=== PATIENT | male | born 1970 | race Caucasian/White ===

== ENCOUNTER 2016-12-07 07:25 | Emergency (ER) | payer OTHER ==
[~2016-12-07] VITALS: Ht 167.6 cm; Wt 72.7 kg
[2016-12-07 07:28] VITALS: BP 143/96; PULSE 77; RESP 16; O2SAT 100
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
[2016-12-07] MEDS ORDERED: HYDROcodone-APAP 10-325 mg PO ONE (09:20)
--- NOTE | 2016-12-07 09:35 | DRSVH ---
PROCEDURE: X-RAY RIGHT TIBIA/FIBULA, TWO VIEWS ([id number]) INDICATIONS: fall, RIGHT LOWER LEG pain TECHNIQUE: 2 views of the tibia and fibula were acquired. COMPARISON: [facility], CR, XR KNEE 1 OR 2VW RT, 12/07/2016, 8:30. FINDINGS: Bones: There is a nondisplaced fracture in the lateral tibial plateau. No suspicious bony lesions. Soft tissues: No suspicious soft tissue calcifications or masses. IMPRESSION: Nondisplaced lateral tibial plateau fracture. Please see separate right knee x-ray report . Dictated by: Tanna Yoder M.D. on 12/07/2016 at 9:32 Approved by: Tanna Yoder M.D. on 12/07/2016 at 9:33
--- NOTE | 2016-12-07 09:37 | DRSVH ---
PROCEDURE: X-RAY RIGHT KNEE, ONE OR TWO VIEWS ([id number]) INDICATIONS: RIGHT KNEE PAIN, FOLLOWING FALL TECHNIQUE: 2 views of the knee were acquired. COMPARISON: [facility], CR, XR TIBIA FIBULA 2VW RT, 12/07/2016, 8:08. FINDINGS: Bones: There is a nondisplaced lateral tibial plateau fracture with minimal central depression. No s uspicious bony lesions. Soft tissues: Large joint effusion with hemarthrosis. No suspicious soft tissue calcifications. IMPRESSION: Nondisplaced lateral tibia plateau fracture with hemarthrosis. Dictated by: Tanna Yoder M.D. on 12/07/2016 at 9:34 Approved by: Tanna Yoder M.D. on 12/07/2016 at 9:36
--- NOTE | 2016-12-07 09:40 | DRSVH ---
PROCEDURE: X-RAY RIGHT FEMUR, TWO VIEWS ([id number]) INDICATIONS: fall, Right thigh pain TECHNIQUE: 2 views of the femur were acquired. COMPARISON: [facility], CR, XR KNEE 1 OR 2VW RT, 12/07/2016, 8:30. [facility], CR, XR TIBIA FIBULA 2VW RT, 12/07/2016, 8:08. FINDINGS: Bones: No fractures or dislocations in right femur. Lateral tibial plateau fracture and hemarthrosis are better seen on knee radiographs. Soft tissues: No suspicious soft tissue calcifications or masses. IMPRESSION: No fracture or dislocation. Dictated by: Tanna Yoder M.D. on 12/07/2016 at 9:36 Approved by: Tanna Yoder M.D. on 12/07/2016 at 9:38
[2016-12-07] MEDS ORDERED: oxyCODONE-Acetamin 10-325 mg Tablet PO ONE ×2 (10:25→15:05)
--- NOTE | 2016-12-07 10:28 | DRSVH ---
PROCEDURE: CT KNEE RIGHT W/O CONTRAST ([id number]) INDICATIONS: tibial plateau fx TECHNIQUE: Noncontrast 1-1.5 mm axial sections acquired from the mid-patella to the proximal tibia, with coronal and sagittal reformats. COMPARISON: [facility], CR, XR KNEE 1 OR 2VW RT, 12/07/2016, 8:30. FINDINGS: Image quality: Excellent. Bones: There is a mildly displaced comminuted fracture of the lateral tibial plateau, extending from its anterior aspect to its posterior aspect, as well as to the lateral tibial spine. There is no sign ificant depression of the lateral tibial plateau. Within the anterior weightbearing aspect of the lat eral femoral condyle, there is a 15 mm transverse by 15 mm anteroposterior by 7 mm craniocaudal proba ble osteochondral lesion. Soft tissues: Moderate lipohemarthrosis is present. Small amount of gas within the suprapatellar rece ss. IMPRESSION: 1. Comminuted lateral tibial plateau fracture, as seen by plain film. 2. Probable unstable osteochondral defect involving the lateral tibial plateau; confirmation with MRI is recommended. 3. Lipohemarthrosis. 4. Small amount of gas within the suprapatellar recess, suggestive of an open fracture. Dictated by: Andriy Sanchez M.D. on 12/07/2016 at 10:11 Approved by: Andriy Sanchez M.D. on 12/07/2016 at 10:27
[2016-12-07 10:54] VITALS: BP 120/68; RESP 16; O2SAT 94
--- NOTE | 2016-12-07 13:22 | DRSVH ---
PROCEDURE: MRI KNEE RIGHT WITHOUT CONTRAST ([id number]) INDICATIONS: 46 year-old male with lateral tibial plateau fracture. TECHNIQUE: Noncontrast sagittal PD fast spin echo and T2 fast spin echo with fat saturation, sagittal 3-D FLASH with fat saturation; coronal T1 spin echo and PD fast spin echo with fat saturation, and axial PD fas t spin echo with fat saturation through the knee. COMPARISON: [facility], CT, CT KNEE RT WO CON, 12/07/2016, 9:53. [facility], CR, XR KNEE 1 OR 2VW RT, 12/07/2016, 8:30. FINDINGS: Image quality: Excellent. Menisci: The medial and lateral menisci demonstrate normal morphology and internal signal. The meni scal root ligaments appear intact. Cruciate ligaments: The anterior and posterior cruciate ligaments appear intact. Medial structures: The medial collateral ligament appears intact. The posterior oblique ligament, s emimembranosus tendon insertions, oblique popliteal ligament, and meniscocapsular junction appear int act. Visualized portions of the pes anserinus tendons appear normal. No abnormal bursal fluid. Lateral structures: The lateral collateral ligament, long and short heads of the biceps femoris tend on appear intact. The popliteus tendon appears normal; the popliteofibular ligament appears intact. The posterosuperior and anteroinferior popliteomeniscal fascicles appear intact. The arcuate and fa bellofibular ligaments appear intact, on either side of the lateral inferior geniculate artery. Ilio tibial band appears normal. Anterior structures: The quadriceps and patellar tendons appear intact. Patellar alignment is chioma l. No femoral trochlear dysplasia or ventral trochlear prominence. There is dependent fluid in the i nfrapatellar fat pad. Bones and cartilage: A nondepressed vertical fracture involves the lateral tibial plateau, with prima ry fracture line in the sagittal plane. On coronal image 13, there is anterior subchondral impaction of the lateral tibial plateau, along with localized extension of fracture through the articular carti toño. On sagittal image 5, an additional nondisplaced subchondral curvilinear fracture involves the m idportion of the lateral femoral condyle. The lateral femoral condylar cartilage surface still appear s intact. The medial femorotibial and patellofemoral compartment cartilage demonstrates normal thickn ess and signal. Joint space: There is large lipohemarthrosis, with dependent fat-fluid level. No Ayers's cyst. Nor mal appearing synovial plicae are incidentally noted. IMPRESSION: 1. Nondepressed vertical fracture of the lateral tibial plateau again noted, with anterior subchondra l chondral and cortical impaction, as well as extension of fracture through the anterior articular ca rtilage. 2. Additional nondisplaced subchondral fracture of the midportion of the lateral femoral condyle. 3. Large associated lipohemarthrosis. Dictated by: Leonid Minaya M.D. on 12/07/2016 at 13:10 Approved by: Leonid Minaya M.D. on 12/07/2016 at 13:21
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
[2016-12-07] MEDS ORDERED: OXYC-466 PO (14:41)
[2016-12-07 15:47] VITALS: BP 109/76; PULSE 82; O2SAT 96
[2016-12-10] MEDS ORDERED: FLUO10TA PO (18:10)
[2016-12-10] MEDS ORDERED: MELA3TAB35 PO (18:10)
== END 2016-12-07 15:43 | disposition home or self-care (01) ==
LOC: EDBD 07:25 → SED 07:25
DX: S82.121A Displaced fracture of lateral condyle of right tibia, initial encounter for closed fracture (principal); S72.421A Displaced fracture of lateral condyle of right femur, initial encounter for closed fracture; S70.01XA Contusion of right hip, initial encounter; W17.89XA Other fall from one level to another, initial encounter; Y92.481 Parking lot as the place of occurrence of the external cause; Y93.9 Activity, unspecified; Y99.8 Other external cause status; Z91.041 Radiographic dye allergy status
CPT/HCPCS: 73551; 73560; 73564; 73590; 73700; 73721; 96372; 99285; J1885

== ENCOUNTER 2016-12-11 13:09 | Inpatient (IN) | payer OTHER ==
[~2016-12-11] VITALS: Ht 167.6 cm; Wt 77.6 kg
[2016-12-11] VITALS (8 sets, daily range): BP systolic 109–125; BP diastolic 59–82; PULSE 75–86; RESP 8–18; O2SAT 95–97
[~2016-12-11 13:09] MED LIST: CeFAZolin Inj 3 GM in IV Premix IV ONE; FLUO10TA PO; Lactated Ringer's 1,000 ML IV ONE; MELA3TAB35 PO; OXYC-466 PO
[2016-12-11] MEDS ORDERED: fentaNYL-PF 50 mCg/mL 2 mL Inj ONE (13:10)
[2016-12-11] MEDS ORDERED: Ondansetron 2 mg/mL 2 mL Inj ONE (13:10)
[2016-12-11] MEDS ORDERED: HYDROmorphone 2 mg/mL Inj ONE (13:10)
[2016-12-11] MEDS ORDERED: Lidocaine PF 1% 30 mL Inj ONE (13:10)
[2016-12-11] MEDS ORDERED: Propofol 10,000 mCg/mL 20 mL Inj ONE (13:10)
[2016-12-11] MEDS ORDERED: CeFAZolin Inj 3 Gm/ D5W 50 mL Bag IV ONE (13:50)
[2016-12-11] MEDS ORDERED: hydrALAZINE 20 mg/mL Inj IVPUSH PRN (14:50)
[2016-12-11] MEDS ORDERED: HYDROmorphone 1 mg/mL Inj IVPUSH PRN (14:50)
[2016-12-11] MEDS ORDERED: EPHEDrine Sulfate 50 mg/mL Inj IVPUSH PRN (14:50)
[2016-12-11] MEDS ORDERED: Labetalol 5 mg/mL 4 mL Inj IV PRN (14:50)
[2016-12-11] MEDS ORDERED: Lactated Ringer's 500 ML IV PRN (14:50)
[2016-12-11] MEDS ORDERED: Ondansetron 2 mg/mL 2 mL Inj IVPUSH PRN ×2 (14:50→17:45)
[2016-12-11] MEDS ORDERED: Atropine 0.4 mg/mL Inj IVPUSH PRN (14:50)
[2016-12-11] MEDS ORDERED: Lactated Ringer's 1,000 ML IV SCH (14:50)
[2016-12-11] MEDS ORDERED: Dexamethasone 4 mg/mL Inj IVPUSH PRN (14:50)
[2016-12-11] MEDS ORDERED: Phenylephrine 10,000 mCg/mL Inj IVPUSH PRN (14:50)
[2016-12-11] MEDS ORDERED: MetoCLOpramide 5 mg/mL 2 mL Inj IVPUSH PRN (14:50)
[2016-12-11] MEDS ORDERED: fentaNYL-PF 50 mCg/mL 2 mL Inj IVPUSH PRN (14:50)
--- NOTE | 2016-12-11 14:50 | PCM.HPANE ---
Patient Data Date of Service: Dec 11, 2016 Surgeon Admitting Provider: Attending Provider:Jose R Guerrero DO Primary Care Physician:Meche Other Provider:Javi Darnell Anesthesia Reason for Visit Right Tibial Plateau Fracture Ht/WT & BMI Height (Feet): 5 Height (Inches): 6 Weight (Kilograms): 77.6 Body Mass Index 27.00 Allergies Coded Allergies: Contrast Media (Verified Allergy, Severe, anapylaxis, 12/07/16) Past Anesthesia History Anesthesia History: Denies:: Abnormal Airway, Anesthesia Reactions, Difficult Intubation, Fam Anesthesia Reaction, Fam Malignant Hypertherm, Malignant Hyperthermia Diabetes History Hx Diabetes?: No MRSA MRSA: No Medications Home Meds Incl Beta Ruchi: No Active Scripts oxyCODONE-Acetaminophen 10-325 mg 1 Each Tablet1 Tablet PO Q4H PRN For Pain #20 TABLET Ref 0 Prov:Luke Martinez DO 12/07/16 Reported Medications Fluoxetine 10 Mg [id number] Mg PO DAILY Ref 0 12/10/16 Discontinued Reported Medications Melatonin 3 Mg Tablet3 Mg PO HS PRN PRN Insomnia 12/10/16 History History of ENT Problems?: No HEENT History: Denies:: Abnormal Airway Cataracts Difficult Intubation Dysphagia Glaucoma Hearing Problem Sinus Problem TMJ Hx of Heart Problems?: No Cardiovascular History: Denies:: AICD Cardiac Surgery Chest Pain Congestive Heart Failure Edema Heart Murmur Hypertension Irregular Heartbeat Pacemaker Hx of Respiratory Problem?: No Respiratory History: Denies:: Asthma COPD Cough Dyspnea Emphysema Oxygen Administration Pneumonia Tuberculosis Use of C-PAP Machine Use of Inhalers / NEBS Hx Neurologic Problems?: No Neurological History: Denies:: Alzheimer's Disease CVA Dementia Dizziness Headaches Multiple Sclerosis Parkinson's Disease Seizures TIA Hx of GI Problems?: No Gastrointestinal History: Denies:: Cirrhosis Diverticulitis Gall Bladder Disease Gastroesphageal Reflux Gastrointestinal Bleeding Heartburn Hepatitis Hiatal Hernia Liver Disease Rectal Bleeding Hx of Problems?: Yes Genitourinary History: Positive for:: Kidney Stones Other Pertinent History: HX OF KIDNEY SURGERY A CHILD Male Hx: Denies:: Prostate Problems Scrotal Mass Testicular Surgery Skin History: Denies:: History Skin Disorders? Hx Musculoskeletal Problems?: Yes (tibeal plateau fx) Musculoskeletal History: Denies:: Back Injury Degenerative Joint Joint Replacement Hx of Psycho/Social Problems?: Yes Psycho Social History: Positive for:: Anxiety Hx Depression Denies:: Bipolar Disorder Suicide Attempt Hx Surgeries?: Yes (KIDNEY SURGER CHILD) Other History: Positive for:: Hospitalization ([facility] 2006) Denies:: Cancer Endocrine Disease Thyroid Disease History Blood Transfusions: Positive for:: Accept Blood Products? Denies:: Blood Transfusions Hx Diabetes: No Hx Alcohol Use: YesAlcoholic Drinks Per Day: OCCASIONAL BEER 3/WEEKHx Substance Use: NoHave You Smoked inLast 12 mo: No Stop/Bang Treated for Sleep Apnea?: No Do You Have a CPAP Machine?: No S-Snoring: Do You Snore Loudly: No T-Tired: feel tired, fatigued: No O-Obsered: Observed not breath: No P-Blood Pressure: treated: No B- Body Mass Index > 35 kg/m2: No A- Age over 50: No N- Neck Large Circumference: No G- Gender Male: Yes NEFTALI Total Score: 1 NEFTALI Risk Assessment: Low Risk, <3 Yes Risk Assessment Category Category 1A: Patient has history of documented sleep apnea, and HAS NOT received any narcotic, sedative or anesthesia administration during this stay. Category 1B: Patient has history of documented sleep apnea, and HAS received any narcotic , sedative or anesthesia administration during this stay Category 2: Patient has SUSPECTED Obstructive Sleep Apnea, and HAS received any narcotic , sedative or anesthesia administration during this stay. Category 3: Patient has SUSPECTED Obstructive Sleep Apnea and HAS NOT received narcotic, sedative or anesthesia administration during this stay. Category 4: Outpatient in Procedural Areas with known sleep apnea or who screen positive for High Risk via the STOP/BANG questionnaire. Exam Exam Vital Signs Vital Signs Date Time Temp Pulse Resp B/P Pulse Ox O2 Delivery O2 Flow Rate FiO2 12/11/16 13:55 36.2 82 18 122/77 96 General Appearance: Alert, Oriented X3, Cooperative HEENT/AIRWAY: MP 2, Neck Movement, Mouth Opening (Wide) Lungs: Clear to Auscultation, Clear to Percussion, Normal Air Movement Heart: Regular Rate/Rhythm, Normal S1, Normal S2 Meds/Labs/Diagnostics Admission Meds Current Medications Lactated Ringer's (Lr) 1,000 ml @ 120 mls/hr Q8H20M ONCE IV Last administered on 12/11/16t 13:12; Start 12/11/16 at 08:49; Stop 12/11/16 at 17:08 Plan Impression Patient chart reviewed, patient interviewed and anesthestic plan with risks, benefits, and alternatives discussed, and informed consent obtained. NPO Status: MIDNIGHT ASA Physical Status: ASA2 Mod Systemic Disease Anesthetic Plan: GA Bene/Risks/Altern/Consents: Yes HP Complete Prior to Induction: Yes Elvis Rashid MD Dec 11, 2016 14:50
[2016-12-11 14:54] LABS: BASOPHILS % (AUTO) 0.8 % (0-3); EOSINOPHILS % (AUTO) 2.3 % (0-5); MONOCYTES % (AUTO) 11.1 % (4-12); Mean Corpuscular Hemoglobin 30.4 pg (27.0-35.0); Mean Corpuscular Volume 86.8 fL (81-100); NEUTROPHILS % (AUTO) 68.9 % (40-74); Platelet Count 267 bil/L (150-400)
[2016-12-11] MEDS ORDERED: Ropivacaine-PF 0.5% 30 mL Inj INFILTRATE ONE (17:28)
[2016-12-11] MEDS ORDERED: oxyCODONE-Acetamin 5-325 mg Tablet PO PRN (17:45)
[2016-12-11] MEDS ORDERED: Magnesium Hydroxide 10 mL Oral Concentration PO PRN (17:45)
[2016-12-11] MEDS ORDERED: Polyethylene Glycol (PEG) 17 Gm Powder PO PRN (17:45)
--- NOTE | 2016-12-11 17:47 | PCM.ANEP1 ---
Post Anesthesia Phase 1 PACU Phase 1 Assessment Date of Service: Dec 11, 2016 Vital Signs Vital Signs Date Time Temp Pulse Resp B/P Pulse Ox O2 Delivery O2 Flow Rate FiO2 12/11/16 17:45 37.3 82 12 109/71 97 Simple Mask 8 12/11/16 13:55 36.2 82 18 122/77 96 Anesthetic Administered: GA Level of Alertness: Sleepy, easy to arouse PENA's with Equal Strength: Yes Pain: No Nausea or Vomiting: No Oxygen Delivery: Simple Mask Lungs: Normal Air Movement Elvis Rashid MD Dec 11, 2016 17:47
--- NOTE | 2016-12-11 17:57 | PCM.ANEP2 ---
Post Anesthesia Evaluation ASA/CMS Post Anesthesia Date of Service: Dec 11, 2016 VS in Patient's Normal Range?: Yes Resp Stable; Airway Patent?: Yes CV Function & Hydration Stable: Yes Mental Status Recovered?: Yes Pain control Satisfactory?: Yes N/V Control Satisfactory?: Yes Elvis Rashid MD Dec 11, 2016 17:56
[2016-12-11] MEDS: 0.9% Sodium Chloride 1,000 ML IV SCH (19:13)
[2016-12-11] MEDS: HYDROmorphone 1 mg/mL Inj IVPUSH PRN ×4 (19:21→22:30)
--- NOTE | 2016-12-11 20:04 | OP ---
[address] [address] OPERATIVE REPORT PATIENT: DANILO MELENDEZ : 1970 MR#: [id number] ADMIT: 12/11/2016 JOB ID: [id number] DATE OF SURGERY: 12/11/2016 PREOPERATIVE DIAGNOSIS(ES): Right tibial plateau fracture, split depression type. POSTOPERATIVE DIAGNOSIS(ES): Right tibial plateau fracture, split depression type. PROCEDURE: Right tibial plateau open reduction and internal fixation with bone grafting. SURGEON: Jose R Guerrero DO. MAGISTRATE: Sonja Daniels PA-C. ANESTHESIA: General. INDICATIONS: The patient is a 46-year-old male, who fell off of a lift gate on a truck, and while trying to get some documentation out, fell about 4 feet onto concrete and sustained a right tibial plateau fracture. We discussed treatment options for this and he wished to proceed with tibial plateau open reduction and internal fixation. We discussed the risks, benefits, and possible complications of surgery. All questions were answered and he wished to proceed. A assistant manager of operations was required for successful completion of this procedure. PROCEDURE IN DETAIL: The patient was brought to the operating room. He was given a general anesthetic and preoperative antibiotic. A preoperative time-out was completed. The right lower extremity was sterilely prepped and draped. A tourniquet was used for hemostasis. An incision was made over the anterolateral knee for a lateral approach and dissection was carefully carried through the subcutaneous tissue. The incision was centered over Gerdy's tubercle and the iliotibial band was released anterior and posterior off of Gerdy's tubercle in order to facilitate exposure. This was carried along the anterior tibial crest to release and get into the proximal tibia. I then performed a submeniscal arthrotomy, taking care to ensure that the arthrotomy was just below the meniscus and that I had tissue for repair of the meniscus after the surgery. I secured the meniscus with multiple mattress sutures and then elevated the meniscus to evaluate the fracture. He had a split depression fracture. The hematoma was washed and irrigated from the knee and an ACL reamer was used with an 8 mm reamer hole in order to gain access to the tibia. This was done over the anterolateral aspect of the tibia just below the fracture area. I then used a tamp to tamp up the articular surface and placed bone graft. About 8 cc of bone graft was used and impacted to elevate the articular surface. The joint depression was mostly anterior, and the joint was tapped up under direct visualization as well as using a C-arm image intensification and also using a [place] to feel the reduction. Once I had the surface brought up, I chose a Synthes proximal tibia locking plate and bent this in order to fit the patient's anatomy and then applied the plate to the proximal tibia. Used a large bone reduction forceps in order to compress the proximal plateau and then secured the plate to the bone with a cortex screw distally and multiple K-wires proximally, checked with biplane fluoroscopy, and when I was happy with the reduction and the plate placement, I secured the plate with three locking screws at the proximal aspect as a raft unicortically. I then placed a kickstand screw with a 3.5 cortex screw in order to gain some additional compression as a kickstand type screw and additional locking screw as an angle locking screw and then one additional cortex screw distally, yielding excellent fixation of his fracture. The wound was then irrigated. The meniscus was repaired and the iliotibial band was repaired with a running 0-Vicryl. The subcu was closed with 2-0 Vicryl and the skin was closed with parker. Naropin was added as an adjunct to local anesthetic. Sterile dressings were applied as well as a hinged knee brace locked in full extension. The patient tolerated the procedure well. Blood loss was 25 cc. POSTOPERATIVE PROTOCOL: Will have the patient remain nonweightbearing on the right lower extremity. Ice and elevate and plan to keep him in the hospital overnight for pain control and antibiotics. Most likely discharge home tomorrow. Follow up in the clinic in two weeks. I would like him to keep the knee straight in the knee immobilizer for 4-6 weeks and then he can begin working on range of motion. I would like him to remain nonweightbearing for a period of 8-12 weeks. He was given a prescription for [place] at the office yesterday and should hopefully not need an additional prescription at the hospital.
[2016-12-11] MEDS: Acetaminophen IV 1,000 MG in IV Premix 1 EACH IV PRN ×2 (20:20→22:31)
[2016-12-11] MEDS: HYDROcodone-APAP 7.5-325 mg Tablet PO PRN (20:43)
[2016-12-11] MEDS: hydrOXYzine Pamoate 25 mg Capsule PO PRN (20:43)
[2016-12-11] MEDS: Senna-Docusate 8.6-50 mg Tablet PO SCH (22:09)
--- NOTE | 2016-12-11 23:33 | NUR ---
Post-op pt arrived to [facility] room 1006, at 1700. pt was drowsy, he would arouse to voice but then fall back asleep. when nurse woke him up he was disoriented, did not know where he was but said he was in a lot of pain. on 2L of via NC. pt was placed on a pulse ox and then given 0.5mg of IV dilaudid after which he fell back asleep. pt slept for another hour. when he woke next he was alert and oriented x4. he again complained of 10/10 pain. he was given more IV dilaudid, IV toradol and IV tylenol. pt still did not feel that his pain was going down. pt was given water, sandwhich and snacks, he ate it all without any nausea. at that time he was given a vistaril and 2 norco. pt dilaudid was titrated up to 2mg in 4hrs per order. he still complains of throbbing pain mostly in his ankle that is 8/10 in intensity. R leg has been elevated and iced placed on knee and ankle. toes are warm with good cap refill. will continue to monitor.
[2016-12-12] MEDS: Sodium Chloride LOK Flush 10 mL Syringe IV SCH ×3 (00:11→16:42)
[2016-12-12] MEDS: HYDROmorphone 1 mg/mL Inj IVPUSH PRN ×8 (00:11→23:39)
[2016-12-12 00:20] VITALS: BP_SYST 111; BP_SYST 112; BP_DIAS 69; BP_DIAS 82; PULSE 81; PULSE 89; RESP 16; O2SAT 95; O2SAT 96
[2016-12-12] MEDS: hydrOXYzine Pamoate 25 mg Capsule PO PRN ×5 (00:49→21:07)
[2016-12-12] MEDS: HYDROcodone-APAP 7.5-325 mg Tablet PO PRN ×2 (00:49→07:46)
[2016-12-12] MEDS: diphenhydrAMINE 25 mg Capsule PO PRN ×2 (03:42→21:46)
--- NOTE | 2016-12-12 04:34 | NUR ---
Pain pt has reported pain his leg 8-10/10 in intensity this shift. he has required frequent admin of IV dilaudid to control his pain. he says the PO Vistaril and [place] are not helping. nurse has attempted to keep pts leg elevated above heart level, as pt has complained of a pulsating feeling in his ankle. however pt says when his leg is elevated above heart level the pain his worse in his upper leg. ice has also been kept on the knee and ankle. pt has complained of a vice like feeling in his ankle and lower leg. both primary and charge nurse have checked the dressing and it does not appear too tight. toes are warm with good cap refill. nurse will continue to try alternatives to IV medication to control pt pain. care continues.
[2016-12-12 05:15] VITALS: BP 120/66; PULSE 80; RESP 16; O2SAT 94
[2016-12-12] MEDS: 0.9% Sodium Chloride 1,000 ML IV SCH ×2 (05:20→17:03)
[2016-12-12 06:37] LABS: BASOPHILS % (AUTO) 0.4 % (0-3); EOSINOPHILS % (AUTO) 2.1 % (0-5); MONOCYTES % (AUTO) 17.5 % (4-12); Mean Corpuscular Hemoglobin 30.2 pg (27.0-35.0); Mean Corpuscular Volume 89.8 fL (81-100); NEUTROPHILS % (AUTO) 63.3 % (40-74); Platelet Count 232 bil/L (150-400)
[2016-12-12] MEDS: Senna-Docusate 8.6-50 mg Tablet PO SCH ×2 (07:45→19:29)
--- NOTE | 2016-12-12 09:07 | PCM.PNORTH ---
Subjective Date of Service: Dec 12, 2016 Visit Information: Reason for Visit Right Tibial Plateau Fracture Surgery/Surgery Date right tibial plateau ORIF 12/11/2016 Post-Op Day # 1 Date of Admission: Hospital Day # Subjective Patient complained of severe increasing pain at the ankle last night "it felt like a vise". It is worse when the leg is elevated. The foot portion of the elastic bandage was removed and the patient reported it felt better. He was up with PT this morning and reported severe increase in pain. He was not able to do stairs. Postop General: No Shortness of Breath, No Chest Pain, Good Appetite Pain Management: PO, IV Push Objective Exam Objective Patient is seen lying in bed with the right leg elevated on pillows Vital Signs and I/O Vital Sign - Last Date Time Temp Pulse Resp B/P Pulse Ox O2 Delivery O2 Flow Rate FiO2 12/12/16 05:15 36.6 80 16 120/66 94 Room Air 12/11/16 18:39 3 Intake and Output 12/11/16 12/11/16 12/12/16 Cumulative From/Thru 15:00 23:00 07:00 12/10/16 17:25 - 12/12/16 05:38 Intake Total 900 ml 100 ml 1500 ml 2500 ml Output Total 50 ml 650 ml 700 ml Balance 900 ml 50 ml 850 ml 1800 ml Intake Oral 0 ml 1500 ml 1500 ml IV Total 900 ml 100 ml 1000 ml Output Urine Total 0 ml 650 ml 650 ml Estimated Blood Loss 50 ml 50 ml # Bowel Movements 1 1 Lab & Micro Results Laboratory Tests Test 12/11/16 14:45 12/12/16 05:55 White Blood Count 11.8th/mm3 (3.8-10.1) 9.7th/mm3 (3.8-10.1) Red Blood Count 5.46mil/mm3 (4.40-5.80) 4.40mil/mm3 (4.40-5.80) Hemoglobin 16.6g/dL (13.8-17.2) 13.3g/dL (13.8-17.2) Hematocrit 47.4% (41.0-50.0) 39.5% (41.0-50.0) Mean Corpuscular Volume 86.8fL (81-100) 89.8fL (81-100) Mean Corpuscular Hemoglobin 30.4pg (27.0-35.0) 30.2pg (27.0-35.0) Mean Corpuscular Hemoglobin Concent 35.0% (32.0-37.0) 33.7% (32.0-37.0) Red Cell Distribution Width 12.5% (12.3-15.4) 12.5% (12.3-15.4) Platelet Count 267bil/L (150-400) 232bil/L (150-400) Neutrophils (%) (Auto) 68.9% (40-74) 63.3% (40-74) Lymphocytes (%) (Auto) 16.5% (14-46) 16.3% (14-46) Monocytes (%) (Auto) 11.1% (4-12) 17.5% (4-12) Eosinophils (%) (Auto) 2.3% (0-5) 2.1% (0-5) Basophils (%) (Auto) 0.8% (0-3) 0.4% (0-3) Sodium Level 139mEq/L (134-144) Potassium Level 4.6mEq/L (3.5-5.2) Chloride Level 100mEq/L (97-108) Carbon Dioxide Level 23mmol/L (18-29) Blood Urea Nitrogen 16mg/dL (6-24) Creatinine 0.80mg/dL (0.76-1.27) Estimat Glomerular Filtration Rate 111mL/min (>59) Glucose Level 83mg/dL (60-99) Calcium Level 9.7mg/dL (8.5-10.1) Result Diagram: 12/12/16 0555 12/11/16 1445 General Appearance: Alert, Oriented X3, Cooperative Extremities: Distal Pulses Palpable, No Compartment Syndrom Noted Postop Sensory Motor: Distal Motor Intact, NVI Distally Catheters: None Assessment & Plan Impression Status post right tibial plateau ORIF and bone grafting Problems: Plan Patient was also seen by Dr. Guerrero and Solo Butler PAC today. The dressing was loosened, the foot portion was removed. The patient reported it felt better immediately. Weightbearing: Nonweightbearing right lower extremity with crutches Long-leg postop brace locked in extension at all times Patient has a prescription for [place] 7.5 mg at home which he received from our office on Saturday. New order is written today for oxycodone 5mg 1-2 q3h prn severe pain DVT prophylaxis: aspirin 325 mg twice a day 6 weeks Physical therapy for transfers, progressive ambulation, therapeutic exercise Wound care: Leave dressing in place until postop visit in 2 weeks at office Discharge plan: Discharge home tomorrow due to pain control and inability to do stairs. Follow-up plan: In 2 weeks at [facility] with SHASTA for wound check and at [address] Guerrero with x-rays Pain Management: Tylenol IV, Dilaudid, [place] 7.5/325 mg, Vistaril. Oxycodone 5 mg added today VTE Prophylaxis: Other (aspirin twice a day) Resuscitation Status: CPR: Attempt Resuscitation [place] PA-C Dec 12, 2016 09:07
[2016-12-12 10:31] VITALS: BP 115/65; PULSE 84; RESP 16; O2SAT 95
--- NOTE | 2016-12-12 14:13 | NUR ---
Evaluation completed. Please go to "Notes" then click on "Assessments and Notes" (bottom left corner of screen). Then select appropriate discipline tab on top of screen.
--- NOTE | 2016-12-12 19:14 | NUR ---
Pain management Pt. reports feeling better than last night. Oxycodone seems to be working more effectively. Vistaril, and toradol also given regularly today. Pt. had to have 0.5 dilaudid after morning and afternoon PT sessions r/t very strong pain.
[2016-12-12 21:00] VITALS: BP 142/78; PULSE 98; RESP 18; O2SAT 95
[2016-12-13] MEDS: hydrOXYzine Pamoate 25 mg Capsule PO PRN ×4 (02:26→16:36)
[2016-12-13] MEDS: HYDROmorphone 1 mg/mL Inj IVPUSH PRN ×2 (02:49→08:15)
[2016-12-13] MEDS: Sodium Chloride LOK Flush 10 mL Syringe IV SCH ×3 (02:51→16:30)
[2016-12-13] MEDS: 0.9% Sodium Chloride 1,000 ML IV SCH ×2 (03:43→09:44)
--- NOTE | 2016-12-13 05:13 | NUR ---
Pain pt has reported pain 8/10 in intensity. he has been taking oxycodone, vistaril and toradol for pain and using the dilaudid IV for breakthrough pain. he says he pain is more intense at night then during the day. he has been going to the bathroom using his crutches and is still sometimes unsteady on them. he needs reminders to wait for staff before getting up. care continues.
[2016-12-13 06:30] VITALS: BP 148/80; PULSE 84; RESP 16; O2SAT 95
[2016-12-13] MEDS: Senna-Docusate 8.6-50 mg Tablet PO SCH (09:30)
--- NOTE | 2016-12-13 14:40 | NUR ---
Social Work- Brief Note Data: EMR reviewed. Pt is a 46 year old male admitted 12/11/16 for right tibial plateau fracture per H&P. Pt's insurance is [email or web address] [facility]. Pt has no PCP. SW met with pt at bedside regarding discharge plan, SW role explained. Pt resides at home in [place] with his family where he remains independent with his ADLs. Pt uses no DME and drives. Pt has no HH or SNF history, no LTC insurance or VA benefits. PT recommending outpt PT as of 12/12. Pt does not have a DPOA on file, SW encouraged pt to complete this. Pt to discharge home with to transport via POV. No anticipated discharge needs. SW will continue to follow as needs arise. Assessment: [place] who [place] independent [place]. Plan: Pt to discharge home with to transport via POV. No anticipated discharge needs. SW will continue to follow as needs arise. Crystal Galan, RACING CAR DRIVER
[2016-12-13 15:10] VITALS: BP 139/79; PULSE 74; RESP 18; O2SAT 98
--- NOTE | 2016-12-13 16:21 | PCM.PNORTH ---
Subjective Date of Service: Dec 13, 2016 Visit Information: Reason for Visit Right Tibial Plateau Fracture Surgery/Surgery Date Post-Op Day # Date of Admission: Dec 11, 2016 at 18:18 Hospital Day # Subjective Status post day #2 right tibial plateau ORIF patient states his pain is doing much better today. Understands how to control the pain and how to take care of the leg much better today. He feels a lot more safe and that he will be able to care for himself at home. Postop General: No Complaints, No Shortness of Breath, No Chest Pain, Good Appetite Pain Management: PO, IV Push Objective Exam Objective Patient is alert and oriented 3. Answering questions appropriately. Sitting up in bed and not in any acute distress today. Dressing is clean dry and intact, brace intact and in good position. Patient able to wiggle toes. Calf is soft and non-tender as far as can be tested, pulses intact, sensation is full. Vital Signs and I/O Vital Sign - Last Date Time Temp Pulse Resp B/P Pulse Ox O2 Delivery O2 Flow Rate FiO2 12/13/16 15:10 36.6 74 18 139/79 98 Room Air 12/11/16 18:39 3 Intake and Output 12/12/16 12/12/16 12/13/16 Cumulative From/Thru 15:00 23:00 07:00 12/10/16 17:25 - 12/13/16 06:42 Intake Total 1040 ml 2021 ml 5561 ml Output Total 1120 ml 1820 ml Balance -80 ml 2021 ml 3741 ml Intake Oral 720 ml 1040 ml 3260 ml IV Total 320 ml 981 ml 2301 ml Output Urine Total 1120 ml 1770 ml Estimated Blood Loss 50 ml # Voids 3 3 # Bowel Movements 1 2 Lab & Micro Results Laboratory Tests Test 12/13/16 02:30 Hold Purple Top Tube Received (Received) Hold [place] Top Tube Received (Received) Result Diagram: 12/12/16 0555 12/11/16 1445 Catheters: None Assessment & Plan Impression Status post day #2 right tibial plateau fracture ORIF. Patient doing better and ready for discharge to home. Problems: Plan Do not bear weight on your right leg, use crutches and this will be the case for at least 6 weeks. Do not bend the leg, you should keep the leg in the brace pretty much at all times until you are seen in our office at 2 weeks. Long-leg postop brace locked in extension at all times Patient given a prescription for Percocet 5/325 mg tablets to take 1-2 every 4- 6 hours for pain since this was working better in the hospital. I am not going to send you home on Dilaudid as this is too much for you. Once this prescription runs out as I only gave him 30 of these, I would like him to use the prescription for [place] 7.5 mg at home which he received from our office on Saturday. DVT prophylaxis: aspirin 325 mg twice a day 6 weeks Wound care: Leave dressing in place until postop visit in 2 weeks at office Discharge plan: Discharge home today now that he can navigate the stairs safely. Follow-up plan: In 2 weeks at [facility] with SHASTA for wound check and at [address] Guerrero with x-rays VTE Prophylaxis: Other (aspirin twice a day) Resuscitation Status: CPR: Attempt Resuscitation Solo Butler PA-C Dec 13, 2016 16:21
--- NOTE | 2016-12-13 16:23 | PCM.DIORTH ---
Ortho Discharge Instruction Date of Service: Dec 13, 2016 Dates of Hospitalization Date of Hospital Admission Dec 11, 2016 at 18:18 Providers Admitting Physician: Jose R Guerrero DO Primary Care Physician: Meche Attending Physician: Jose R Guerrero DO Diet Discharge Diet: No restrictions Activity Right Lower Extremity: Non-weight Bearing Range of motion restrictions: Do not bend the right knee Additional Instructions Discharge Instructions Do not bear weight on your right leg, use crutches and this will be the case for at least 6 weeks. Do not bend the leg, you should keep the leg in the brace pretty much at all times until you are seen in our office at 2 weeks. Long-leg postop brace locked in extension at all times Patient given a prescription for Percocet 5/325 mg tablets to take 1-2 every 4- 6 hours for pain since this was working better in the hospital. I am not going to send you home on Dilaudid as this is too much for you. Once this prescription runs out as I only gave him 30 of these, I would like him to use the prescription for [place] 7.5 mg at home which he received from our office on Saturday. DVT prophylaxis: aspirin 325 mg twice a day 6 weeks Wound care: Leave dressing in place until postop visit in 2 weeks at office Discharge plan: Discharge home today now that he can navigate the stairs safely. Follow-up plan: In 2 weeks at [facility] with SHASTA for wound check and at [address] Guerrero with x-rays Solo Butler PA-C Dec 13, 2016 16:22
--- NOTE | 2016-12-13 16:25 | PCM.DC.ORT ---
Discharge Summary Date of Service: Dec 13, 2016 Date of Hospital Admission: Dec 11, 2016 at 18:18 Date of Surgery: Dec 11, 2016 Date of Discharge: Dec 13, 2016 Reason for Hospitalization: Right tibial plateau fracture Procedures Performed: Right tibial plateau fracture ORIF Hospital Course: Patient presented to [facility] surgical suite for the procedure of right tibial plateau fracture ORIF by Dr. Jose R Guerrero on 12/11/2016. Patient was prepped for surgery and the procedure was performed successfully, patient was discharged to PACU under stable condition, tolerated the procedure well. Once stabilized in PACU and pain well controlled, patient was admitted to the hospital floor for observation, pain control, and progression with physical therapy. The first 1-2 days the patient was able to resume a regular diet, void on their own, not having any problems with nausea or vomiting. The patient did not have any adverse falls, reactions, or events were all in the hospital. The patient began working with physical therapy on day one then progressed quite well with reasonable pain control. On day 2 the patient was able to ambulate safely on their own, and pain was controlled sufficiently to be discharged to home. We will utilize aspirin 325 mg by mouth twice a day for 6 weeks for DVT prophylaxis. The patient was discharged to home under stable condition with plan to follow- up with patient at 2 weeks for a postoperative appointment. Diagnosis at Time of Discharge Status post right tibial fracture ORIF Problems: Discharge Instructions: Do not bear weight on your right leg, use crutches and this will be the case for at least 6 weeks. Do not bend the leg, you should keep the leg in the brace pretty much at all times until you are seen in our office at 2 weeks. Long-leg postop brace locked in extension at all times Patient given a prescription for Percocet 5/325 mg tablets to take 1-2 every 4- 6 hours for pain since this was working better in the hospital. I am not going to send you home on Dilaudid as this is too much for you. Once this prescription runs out as I only gave him 30 of these, I would like him to use the prescription for [place] 7.5 mg at home which he received from our office on Saturday. DVT prophylaxis: aspirin 325 mg twice a day 6 weeks Wound care: Leave dressing in place until postop visit in 2 weeks at office Discharge plan: Discharge home today now that he can navigate the stairs safely. Follow-up plan: In 2 weeks at [facility] with PA for wound check and at [address] Guerrero with x-rays Fluoxetine (Fluoxetine) 10 Mg Tablet 10 MG PO DAILY Solo Butler PA-C Dec 13, 2016 16:25
--- NOTE | 2016-12-13 18:08 | NUR ---
Discharge Pt discharged at 1708 in private vehicle with . Pt has candis wrap and immobilizer in place on right leg, as well as ice pack.. Pt's pain well controlled 01/07, BECKY LEON. Pt has all discharge instructions, care notes and rx's. IV removed intact. Has all belongings and all questions answered.
== END 2016-12-13 17:13 | disposition home or self-care (01) | DRG 494 ==
LOC: SAS 13:09 → OSC 18:18 → SAS 18:18 → OSC 18:18
PROVIDERS: ADMIT Orthopaedic Surgery; ATTEND Orthopaedic Surgery
PROC: 0QUG07Z Supplement Right Tibia with Autologous Tissue Substitute, Open Approach (ICD-10-PCS; 2016-12-11)
PROC: 0QSG04Z Reposition Right Tibia with Internal Fixation Device, Open Approach (ICD-10-PCS; principal; 2016-12-11 15:15)
DX: S82.141A Displaced bicondylar fracture of right tibia, initial encounter for closed fracture (principal); W17.89XA Other fall from one level to another, initial encounter; Y93.9 Activity, unspecified; Y92.9 Unspecified place or not applicable